=== PATIENT | male | born 1995 | race Two or more races ===

== ENCOUNTER 2021-05-27 14:00 | Inpatient (IN) | payer OTHER, SELFPAY ==
[~2021-05-27] VITALS: Ht 175.3 cm; Wt 103.9 kg
[2021-05-27 15:13] LABS: Basophils # (auto) 0 10 ^3/uL (0-0.2); Basophils % (auto) 0.1 % (0.0-2.0); Eosinophils # (auto) 0 10 ^3/uL (0-0.8); Hematocrit 46.2 % (41.0-53.0); Hemoglobin 15.7 g/dL (13.5-17.5); Lymphocytes # (auto) 0.7 10 ^3/uL (0.4-5.4); Mean Corpuscular Hemoglobin 27.2 pg (28.0-32.0); Mean Corpuscular Volume 80.2 fL (80.0-100.0); Monocytes # (auto) 0.5 10 ^3/uL (0-1.3); Monocytes % (auto) 5.4 % (0.0-12.0); Neutrophils # (auto) 8.8 10 ^3/uL (1.6-8.6); Neutrophils % (auto) 87.5 % (37.0-80.0); Nucleated Red Blood Cells % 0.1 %; Red Blood Cells 5.77 10^6/uL (4.5-5.90); Red Cell Distribution Width 13.2 % (11.8-14.3); White Blood Cell 10.1 10^3/uL (4.4-10.8)
[2021-05-27 15:30] LABS: Albumin 2.7 g/dL (3.4-5.0); Calcium 8.2 mg/dL (8.5-10.1); Potassium 3.6 mmol/L (3.5-5.1)
[2021-05-27] MEDS ORDERED: AZITHROMYCIN 500MG/ 250ML 250 ML IV ONE (15:30)
[2021-05-27] MEDS ORDERED: ZINC SULFATE 220mg CAP or TAB PO ONE (15:30)
[2021-05-27] MEDS ORDERED: ASCORBIC ACID 500 MG TAB PO ONE (15:30)
[2021-05-27] MEDS ORDERED: SODIUM CHLORIDE 0.9% 500 ML IV ONE (15:30)
[2021-05-27] MEDS ORDERED: DexAMETHasone SOD PHOS 10MG/1ML VIAL INJ IV ONE (15:30)
[2021-05-27] MEDS ORDERED: CHOLECALCIFEROL (VITD3) 2,000 UNIT CAP/TAB PO ONE (15:30)
[2021-05-27] MEDS ORDERED: cefTRIAXone 1GM/50ML D5W 50 ML IV ONE (15:30)
[2021-05-27] MEDS ORDERED: SODIUM CHLORIDE 0.9% 1,000 ML IV ONE (15:30)
[2021-05-27 15:33] LABS: BUN/Creatinine Ratio 10.6; Bilirubin, Total 0.6 mg/dL (0.2-1.0); Total Protein 7.6 g/dL (6.4-8.2)
[2021-05-27 15:54] LABS: INR 1.21 (0.9-1.15); Partial Thromboplastin Time 28.8 sec (23.6-33.0)
[2021-05-27] MEDS ORDERED: ACETAMINOPHEN 500 MG TAB PO ONE (16:15)
[2021-05-27] MEDS ORDERED: REMDESIVIR PER PHARMACY 0 ML IV SCH (18:30)
[2021-05-27] MEDS ORDERED: diphenhdrAMINE HCL 50 MG/1 ML VL IV PRN (18:30)
[2021-05-27] MEDS ORDERED: NITROGLYCERIN 0.4 MG SL TAB SL PRN (18:30)
[2021-05-27] MEDS ORDERED: MORPHINE SULFATE INJECTION 2 MG/ML SYRG IV PRN (18:30)
[2021-05-27] MEDS ORDERED: PROMETHAZINE HCL 25 MG/ML 1ML IV PRN (18:45)
[2021-05-27] MEDS ORDERED: ACETAMINOPHEN 500 MG TAB PO PRN (18:45)
[2021-05-27] MEDS ORDERED: DEXTROSE (50%) 50ML SYRG IV PRN (18:45)
[2021-05-27] MEDS ORDERED: traMADol HCL 50 MG TAB PO PRN (18:45)
[2021-05-27 19:11] VITALS: BP 116/75
[2021-05-27] MEDS ORDERED: REMDESIVIR 200 MG in NS 210ml LOADING DOSE ADULT IV ONE (20:00)
[2021-05-27] MEDS: ENOXAPARIN SOD 40 MG/0.4 ML SYRINGE SC SCH (21:31)
[2021-05-27] MEDS: ACCU-CHEK COMFORT CURVE STRIP VI SCH (21:31)
[2021-05-27] MEDS: BUDESONIDE (INHALATION) 180 MCG IH IN SCH (22:00)
[2021-05-27] MEDS ORDERED: TEMAZEPAM 15 MG CAP PO PRN (22:00)
[2021-05-27] MEDS: ALBUTEROL SULF HFA 90MCG INH 200DOSE IN PRN (22:53)
[2021-05-28 01:00] VITALS: BP 131/74
[2021-05-28 05:00] VITALS: BP 134/87
[2021-05-28] MEDS: ACCU-CHEK COMFORT CURVE STRIP VI SCH ×3 (06:28→22:22)
[2021-05-28 06:49] LABS: Basophils # (auto) 0 10 ^3/uL (0-0.2); Basophils % (auto) 0.1 % (0.0-2.0); Eosinophils # (auto) 0 10 ^3/uL (0-0.8); Hematocrit 43.6 % (41.0-53.0); Hemoglobin 14.5 g/dL (13.5-17.5); Lymphocytes # (auto) 0.4 10 ^3/uL (0.4-5.4); Lymphocytes % (auto) 5.5 % (10.0-50.0); Mean Corpuscular Hemoglobin 27.1 pg (28.0-32.0); Mean Corpuscular Hgb Conc. 33.3 g/dL (32.0-36.0); Mean Corpuscular Volume 81.6 fL (80.0-100.0); Monocytes # (auto) 0.4 10 ^3/uL (0-1.3); Monocytes % (auto) 4.9 % (0.0-12.0); Neutrophils # (auto) 6.7 10 ^3/uL (1.6-8.6); Neutrophils % (auto) 89.5 % (37.0-80.0); Nucleated Red Blood Cells % 0.1 %; Red Blood Cells 5.35 10^6/uL (4.5-5.90); Red Cell Distribution Width 13.8 % (11.8-14.3); White Blood Cell 7.5 10^3/uL (4.4-10.8)
[2021-05-28 06:59] LABS: Albumin 2.4 g/dL (3.4-5.0); BUN/Creatinine Ratio 14.9; Potassium 3.4 mmol/L (3.5-5.1)
[2021-05-28 07:02] LABS: Bilirubin, Total 0.5 mg/dL (0.2-1.0); Total Protein 6.9 g/dL (6.4-8.2)
[2021-05-28] MEDS: BUDESONIDE (INHALATION) 180 MCG IH IN SCH ×2 (07:16→21:12)
[2021-05-28] MEDS: ALBUTEROL SULF HFA 90MCG INH 200DOSE IN PRN (07:16)
[2021-05-28 07:35] LABS: Urine Bacteria NONE SEEN /hpf (None Seen); Urine Blood Negative /uL (Negative); Urine Mucus FEW (None Seen); Urine Specific Gravity 1.043 (1.001-1.035); Urine WBC 3 /hpf (0 - 3)
[2021-05-28] MEDS: cefTRIAXone 1GM/50ML D5W 50 ML IV SCH (08:53)
[2021-05-28 09:00] VITALS: BP 124/82
[2021-05-28] MEDS: ENOXAPARIN SOD 40 MG/0.4 ML SYRINGE SC SCH ×2 (09:34→22:25)
[2021-05-28] MEDS: IVERMECTIN 3 MG TAB PO SCH (09:34)
[2021-05-28] MEDS: ASCORBIC ACID 1,000 MG TAB PO SCH (09:34)
[2021-05-28] MEDS: CHOLECALCIFEROL (VITD3) 2,000 UNIT CAP/TAB PO SCH (09:35)
[2021-05-28] MEDS: ZINC SULFATE 220mg CAP or TAB PO SCH (09:35)
[2021-05-28] MEDS: DexAMETHasone SOD PHOS 10MG/1ML VIAL INJ IV SCH (09:36)
[2021-05-28] MEDS: AZITHROMYCIN 500MG/ 250ML 250 ML IV SCH (10:10)
[2021-05-28] MEDS ORDERED: DEXTROSE (50%) 50ML SYRG IV PRN (12:45)
[2021-05-28 13:00] VITALS: BP 148/89
[2021-05-28] MEDS: REMDESIVIR 100mg 100 MG in SODIUM CHL 0.9% 230 ML IV SCH (15:37)
[2021-05-28 16:58] VITALS: BP 122/73
[2021-05-28] MEDS: InsuLIN REG 1unit/0.01ml Soln (100units/ml) SC SCH ×2 (17:50→22:25)
[2021-05-28 22:00] VITALS: BP 122/83
[2021-05-29 05:15] VITALS: BP 117/75
[2021-05-29] MEDS: ALBUTEROL SULF HFA 90MCG INH 200DOSE IN PRN ×2 (06:04→20:02)
[2021-05-29] MEDS: BUDESONIDE (INHALATION) 180 MCG IH IN SCH ×2 (06:05→20:02)
[2021-05-29] MEDS: InsuLIN REG 1unit/0.01ml Soln (100units/ml) SC SCH ×4 (06:41→21:51)
[2021-05-29] MEDS: ACCU-CHEK COMFORT CURVE STRIP VI SCH ×4 (06:41→21:51)
[2021-05-29 06:52] LABS: INR 1.22 (0.9-1.15)
[2021-05-29 07:09] LABS: Albumin 2.3 g/dL (3.4-5.0); Magnesium 2.6 mg/dL (1.6-2.6); Potassium 3.4 mmol/L (3.5-5.1)
[2021-05-29 07:30] LABS: BUN/Creatinine Ratio 18.6; Bilirubin, Total 0.5 mg/dL (0.2-1.0); CRP High Sensitivity 7.28 mg/dL (< 0.3); Total Protein 6.4 g/dL (6.4-8.2)
[2021-05-29 09:00] VITALS: BP 118/63
[2021-05-29] MEDS: ZINC SULFATE 220mg CAP or TAB PO SCH (09:41)
[2021-05-29] MEDS: cefTRIAXone 1GM/50ML D5W 50 ML IV SCH (09:41)
[2021-05-29] MEDS: ASCORBIC ACID 1,000 MG TAB PO SCH (09:41)
[2021-05-29] MEDS: CHOLECALCIFEROL (VITD3) 2,000 UNIT CAP/TAB PO SCH (09:41)
[2021-05-29] MEDS: AZITHROMYCIN 500MG/ 250ML 250 ML IV SCH (09:42)
[2021-05-29] MEDS: DexAMETHasone SOD PHOS 10MG/1ML VIAL INJ IV SCH (09:42)
[2021-05-29] MEDS: ENOXAPARIN SOD 40 MG/0.4 ML SYRINGE SC SCH ×2 (09:42→21:51)
[2021-05-29] MEDS: IVERMECTIN 3 MG TAB PO SCH (09:42)
[2021-05-29 13:00] VITALS: BP 104/79
[2021-05-29] MEDS ORDERED: guaiFENesin-CODEINE Liq 5 ML UD PO PRN (14:00)
[2021-05-29] MEDS ORDERED: FUROSEMIDE 20 MG/2 ML VIAL IV ONE (16:45)
[2021-05-29] MEDS ORDERED: POTASSIUM CHL 20 Meq TABLET PO ONE (16:45)
[2021-05-29 17:00] VITALS: BP 103/53
[2021-05-29] MEDS: REMDESIVIR 100mg 100 MG in SODIUM CHL 0.9% 230 ML IV SCH (17:53)
[2021-05-29] MEDS ORDERED: IOHEXOL 350 MG/ML 100ML IJ ONE (21:02)
[2021-05-29 22:00] VITALS: BP 113/74
[2021-05-30 05:00] VITALS: BP 105/68
[2021-05-30] MEDS: ACCU-CHEK COMFORT CURVE STRIP VI SCH ×4 (06:07→21:49)
[2021-05-30 06:31] LABS: Albumin 2.3 g/dL (3.4-5.0); Calcium 8.2 mg/dL (8.5-10.1); Potassium 3.5 mmol/L (3.5-5.1)
[2021-05-30] MEDS: BUDESONIDE (INHALATION) 180 MCG IH IN SCH ×2 (06:33→21:33)
[2021-05-30] MEDS: ALBUTEROL SULF HFA 90MCG INH 200DOSE IN PRN ×2 (06:33→21:33)
[2021-05-30 06:37] LABS: Bilirubin, Total 0.5 mg/dL (0.2-1.0); Total Protein 6.4 g/dL (6.4-8.2)
[2021-05-30] MEDS: InsuLIN REG 1unit/0.01ml Soln (100units/ml) SC SCH ×4 (07:00→21:49)
[2021-05-30 09:00] VITALS: BP 123/66
[2021-05-30] MEDS: cefTRIAXone 1GM/50ML D5W 50 ML IV SCH (09:49)
[2021-05-30] MEDS: ASCORBIC ACID 1,000 MG TAB PO SCH (09:52)
[2021-05-30] MEDS: ZINC SULFATE 220mg CAP or TAB PO SCH (09:52)
[2021-05-30] MEDS: CHOLECALCIFEROL (VITD3) 2,000 UNIT CAP/TAB PO SCH (09:53)
[2021-05-30] MEDS: ENOXAPARIN SOD 40 MG/0.4 ML SYRINGE SC SCH ×2 (09:53→21:48)
[2021-05-30] MEDS: FUROSEMIDE 20 MG/2 ML VIAL IV SCH (09:53)
[2021-05-30] MEDS: DexAMETHasone SOD PHOS 10MG/1ML VIAL INJ IV SCH (09:53)
[2021-05-30] MEDS: AZITHROMYCIN 500MG/ 250ML 250 ML IV SCH (09:54)
[2021-05-30] MEDS: IVERMECTIN 3 MG TAB PO SCH (09:54)
[2021-05-30 13:00] VITALS: BP 112/55
[2021-05-30] MEDS ORDERED: POTASSIUM CHL 20 Meq TABLET PO ONE (14:00)
[2021-05-30] MEDS: REMDESIVIR 100mg 100 MG in SODIUM CHL 0.9% 230 ML IV SCH (15:28)
[2021-05-30 17:00] VITALS: BP 105/59
[2021-05-30 19:46] VITALS: BP 105/59
[2021-05-30 22:00] VITALS: BP 111/72
[2021-05-31 05:00] VITALS: BP 117/72
[2021-05-31] MEDS: ACCU-CHEK COMFORT CURVE STRIP VI SCH ×4 (06:00→21:37)
[2021-05-31] MEDS: BUDESONIDE (INHALATION) 180 MCG IH IN SCH (06:55)
[2021-05-31] MEDS: InsuLIN REG 1unit/0.01ml Soln (100units/ml) SC SCH ×4 (07:00→21:38)
[2021-05-31 07:30] LABS: Potassium 3.5 mmol/L (3.5-5.1)
[2021-05-31 07:46] LABS: Albumin 2.5 g/dL (3.4-5.0); BUN/Creatinine Ratio 23.9; Bilirubin, Direct 0.3 mg/dL (0-0.2); Bilirubin, Total 0.6 mg/dL (0.2-1.0); CRP High Sensitivity 4.34 mg/dL (< 0.3); Calcium 8.4 mg/dL (8.5-10.1); Magnesium 2.5 mg/dL (1.6-2.6)
[2021-05-31 08:55] VITALS: BP 106/75
[2021-05-31] MEDS: DexAMETHasone SOD PHOS 10MG/1ML VIAL INJ IV SCH (11:11)
[2021-05-31] MEDS: cefTRIAXone 1GM/50ML D5W 50 ML IV SCH (11:11)
[2021-05-31] MEDS: ZINC SULFATE 220mg CAP or TAB PO SCH (11:12)
[2021-05-31] MEDS: FUROSEMIDE 20 MG/2 ML VIAL IV SCH (11:12)
[2021-05-31] MEDS: POTASSIUM CHL 10 Meq TABLET PO SCH (11:12)
[2021-05-31] MEDS: IVERMECTIN 3 MG TAB PO SCH (11:13)
[2021-05-31] MEDS: CHOLECALCIFEROL (VITD3) 2,000 UNIT CAP/TAB PO SCH (11:13)
[2021-05-31] MEDS: ENOXAPARIN SOD 40 MG/0.4 ML SYRINGE SC SCH ×2 (11:13→21:37)
[2021-05-31] MEDS: ASCORBIC ACID 1,000 MG TAB PO SCH (11:13)
[2021-05-31 13:00] VITALS: BP 119/72
[2021-05-31] MEDS: AZITHROMYCIN 500MG/ 250ML 250 ML IV SCH (13:16)
[2021-05-31] MEDS: REMDESIVIR 100mg 100 MG in SODIUM CHL 0.9% 230 ML IV SCH (16:36)
[2021-05-31 17:00] VITALS: BP 98/72
[2021-05-31] MEDS: ALBUTEROL SULF HFA 90MCG INH 200DOSE IN PRN (19:31)
[2021-05-31 22:00] VITALS: BP 111/72
[2021-06-01 05:00] VITALS: BP 111/59
[2021-06-01] MEDS: InsuLIN REG 1unit/0.01ml Soln (100units/ml) SC SCH ×2 (06:33→11:30)
[2021-06-01] MEDS: ACCU-CHEK COMFORT CURVE STRIP VI SCH ×2 (06:33→11:30)
[2021-06-01] MEDS: ALBUTEROL SULF HFA 90MCG INH 200DOSE IN PRN (06:56)
[2021-06-01] MEDS: BUDESONIDE (INHALATION) 180 MCG IH IN SCH (06:57)
[2021-06-01 07:05] LABS: Albumin 2.7 g/dL (3.4-5.0); Potassium 3.9 mmol/L (3.5-5.1)
[2021-06-01 07:15] LABS: Bilirubin, Direct 0.3 mg/dL (0-0.2); Bilirubin, Total 0.5 mg/dL (0.2-1.0); CRP High Sensitivity 2.14 mg/dL (< 0.3); Total Protein 7.3 g/dL (6.4-8.2)
[2021-06-01 09:00] VITALS: BP 108/65
[2021-06-01] MEDS: cefTRIAXone 1GM/50ML D5W 50 ML IV SCH (09:00)
[2021-06-01] MEDS: DexAMETHasone SOD PHOS 10MG/1ML VIAL INJ IV SCH (10:00)
[2021-06-01] MEDS: AZITHROMYCIN 500MG/ 250ML 250 ML IV SCH (10:00)
[2021-06-01] MEDS: IVERMECTIN 3 MG TAB PO SCH (10:00)
[2021-06-01] MEDS: FUROSEMIDE 20 MG/2 ML VIAL IV SCH (10:00)
[2021-06-01] MEDS: ZINC SULFATE 220mg CAP or TAB PO SCH (10:00)
[2021-06-01] MEDS: POTASSIUM CHL 10 Meq TABLET PO SCH (10:00)
[2021-06-01] MEDS: ENOXAPARIN SOD 40 MG/0.4 ML SYRINGE SC SCH (10:00)
[2021-06-01] MEDS: ASCORBIC ACID 1,000 MG TAB PO SCH (10:00)
[2021-06-01] MEDS: CHOLECALCIFEROL (VITD3) 2,000 UNIT CAP/TAB PO SCH (10:00)
[2021-06-01] MEDS ORDERED: ASCO10003 PO (10:41)
[2021-06-01] MEDS ORDERED: CHOL1CAP47 PO (10:41)
[2021-06-01] MEDS ORDERED: ALBUAER3 IN (10:41)
[2021-06-01] MEDS ORDERED: AMOX500T86 PO (10:41)
[2021-06-01 11:24] VITALS: BP 106/75
== END 2021-06-01 13:15 | disposition home or self-care (01) | DRG 177 ==
LOC: ER 14:00 → TELE 18:27 → TELE-EAST 23:18
PROVIDERS: ADMIT Internal Medicine; ATTEND Internal Medicine Pulmonary Disease
PROC: XW033E5 Introduction of Remdesivir Anti-infective into Peripheral Vein, Percutaneous Approach, New Technology Group 5 (ICD-10-PCS; principal; 2021-05-27)
DX: U07.1 COVID-19 (principal); J12.82 Pneumonia due to coronavirus disease 2019; J96.00 Acute respiratory failure, unspecified whether with hypoxia or hypercapnia; R73.9 Hyperglycemia, unspecified; E66.9 Obesity, unspecified; D89.839 Cytokine release syndrome, grade unspecified; K76.0 Fatty (change of) liver, not elsewhere classified; Z83.3 Family history of diabetes mellitus; Z68.34 Body mass index [BMI] 34.0-34.9, adult
CPT/HCPCS: 36415; 36600; 71045; 71275; 80053; 80061; 80076; 81001; 82306; 82728; 82805; 82962; 83036; 83605; 83615; 83735; 84132; 84484; 85025; 85379; 85610; 85730; 86141; 86850; 86900; 86901; 87040; 87426; 93005; 94640; 96361; 96365; 96367; 96368; 96375; G0378; J0696; J1100; J1815

== ENCOUNTER 2024-06-30 09:25 | Emergency (ER) | payer MEDICAID ==
[~2024-06-30] VITALS: Ht 172.7 cm; Wt 106.9 kg
[~2024-06-30 09:25] MED LIST: ALBUAER3 IN; AMOX500T86 PO; ASCO10003 PO; CHOL1CAP47 PO
[2024-06-30 10:00] VITALS: PULSE 80; RESP 17; O2SAT 96
[2024-06-30] MEDS: PROCHLORPERAZINE EDISYLATE 5 MG/ML 2ML VIAL IV ONE (10:57)
[2024-06-30] MEDS: ACETAMINOPHEN 500 MG TAB or CAP PO ONE (10:57)
[2024-06-30] MEDS: SODIUM CHLORIDE 0.9% 1,000 ML IVB ONE (10:57)
--- NOTE | 2024-06-30 11:04 | ED.PDOC ---
History of Present Illness HPI Comments This is a 29-year-old male who comes in with chief complaint of vomiting, fever, chills and body aches. The patient was also complaining of a headache. The patient states that all symptoms started on Saturday. Upon arrival, the patient was actively vomiting. Chief Complaint: Shortness of Breath Time Seen by MD: 09:37 Primary Care Provider: none Reviewed Notes: Nurses Notes, Medications, Allergies (No allergies to medications) Allergies: Coded Allergies: No Known Drug Allergy (Verified Allergy, Unknown, 05/27/21) Home Meds Active Scripts Ondansetron Odt 4MG Tab (ZOFRAN PO) 4 Mg Tb, 4 MG PO Q8HP PRN for 7 Days, #21 TAB ODT TAB-DISSOLVE IN MOUTH, THEN SWALLOW Prov:SNOW SANCHEZ MD 06/30/24 Levofloxacin Hemihydrate (LEVAQUIN 500 MG) 500 Mg Tab, 1 TAB PO DAILY, #10 TAB Prov:SNOW SANCHEZ MD 06/30/24 Pantoprazole Sodium Sesquihydr (Protonix) 40 Mg Tab, 40 MG PO DAILY, #30 TAB Prov:SNOW SANCHEZ MD 06/30/24 Ondansetron Odt 4MG Tab (ZOFRAN PO) 4 Mg Tb, 4 MG PO Q8HP PRN for 5 Days, #15 TAB ODT TAB-DISSOLVE IN MOUTH, THEN SWALLOW Prov:SNOW SANCHEZ MD 06/30/24 Cholecalciferol (Vitamin D3 Super Strength) 2,000 Unit Cap, 4000 UNIT PO DAILY for 30 Days, #30 CAP Prov:NIHDI CHANDLER MD 06/01/21 Ascorbic Acid (Gnp Vitamin C W/Bharati Hips) 1,000 Mg Tab, 1000 MG PO DAILY for 30 Days, #30 TAB Prov:NIDHI CHANDLER MD 06/01/21 Albuterol Sulfate (VENTOLIN MDI) 90 Mcg Ih, 180 MCG IN TIDPRN PRN for 90 Days, #90 INH Prov:NIDHI CHANDLER MD 06/01/21 Amoxicillin & Pot Clavulanate (Augmentin) 500 Mg Tab, 1 TAB PO BID, #6 TAB Prov:NIDHI CHANDLER MD 06/01/21 Information Source: Patient Mode of Arrival: Ambulatory Severity: Moderate Timing: Days Duration: Since onset Prehospital treatment: None Location: Generalized body aches with fever and chills Past Medical History PAST MEDICAL HISTORY: Denies Surgical History: Denies all surgeries Family History Family History: Family hx of DM, Family hx of heart viviana Social History Smoker: Non-Smoker Alcohol: Denies ETOH Use Drugs: Denies Drug Use Lives In: Home Constitutional: reports: chills, fever, others (This is); denies: diaphoresis, fatigue, malaise, sweats, weakness EENTM: denies: blurred vision, double vision, ear bleeding, ear discharge, ear drainage, ear pain, ear ringing, eye pain, eye redness, hearing loss, mouth pain, mouth swelling, nasal discharge, nose bleeding, nose congestion, nose pain, photophobia, tearing, throat pain, throat swelling, voice changes, others Respiratory: denies: cough, hemoptysis, orthopnea, SOB at rest, shortness of breath, SOB with excertion, stridor, wheezing, others Cardiovascular: denies: chest pain, dizzy spells, diaphoresis, Dyspnea on exertion, edema, irregular heart beat, left arm pain, lightheadedness, palpitations, PND, syncope, others Gastrointestinal: denies: abdomen distended, abdominal pain, blood streaked bowels, constipated, diarrhea, dysphagia, difficulty swallowing, hematemesis, melena, nausea, poor appetite, poor fluid intake, rectal bleeding, rectal pain, vomiting, others Genitourinary: denies: burning, dysuria, flank pain, frequency, hematuria, incontinence, penile discharge, penile sore, pain, testicle pain, testicle swelling, urgency, others Neurological: reports: headache; denies: dizziness, fainting, left sided numbness, left sided weakness, numbness, paresthesia, pre-existing deficit, right sided numbness, right sided weakness, seizure, speech problems, tingling, tremors, weakness, others Musculoskeletal: denies: back pain, gout, joint pain, joint swelling, muscle pain, muscle stiffness, neck pain, others Integumetry: denies: bruises, change in color, change in hair/nails, dryness, laceration, lesions, lumps, rash, wounds, others Allergic/Immunocompromised: denies: Difficulty Healing, Frequent Infections, Hives, Itching, others Hematologic/Lymphatic: denies: anemia, blood clots, easy bleeding, easy bruising, swollen glands, others Endocrine: denies: excessive hunger, excessive sweating, excessive thirst, excessive urination, flushing, intolerance to cold, intolerance to heat, unexplained weight gain, unexplained weight loss, others Psychiatric: denies: anxiety, bipolar disorder, depression, hopeless, panic disorder, schizophrenia, sleepless, suicidal, others Physical Exam General Appearance: Moderate Distress HEENT: Normal ENT Inspection, Pharynx Normal, TMs Normal Neck: Full Range of Motion, Non-Tender, Normal, Normal Inspection Respiratory: Chest Non-Tender, Lungs Clear, No Accessory Muscle Use, No Respiratory Distress, Normal Breath Sounds Cardiovascular: No Edema, No JVD, No Murmur, No Gallop, Normal Peripheral Pulses, Regular Rate/Rhythm Breast Exam: Deferred Gastrointestinal: No Organomegaly, Non Tender, No Pulsatile Mass, Normal Bowel Sounds, Soft Genitalia: Deferred Pelvic: Deferred Rectal: Deferred Extremities: No calf tenderness, Normal capillary refill, Normal inspection, Normal range of motion, Non-tender, No pedal edema Musculoskeletal : Apperance: Normal Neurologic: Alert, business development agent II-XII nml as Tested, Motor Weakness, Normal Affect, No rmal Mood, No Sensory Deficits Cerebellar Function: Normal Reflexes: Normal Skin: Dry, Normal Color, Warm Lymphatic: No Adenopathy Was a procedure done? Was a procedure done?: No Differential Dx Considerations may include: COVID-19, influenza, viral syndrome, generalized weakness X-Ray, Labs, Meds, VS Vital Signs Date Time Temp Pulse Resp B/P (MAP) Pulse Ox O2 Delivery O2 Flow Rate FiO2 06/30/24 11:54 100.0 112 18 152/66 (94) 96 100.0 06/30/24 10:57 100.1 06/30/24 10:00 80 17 96 Room Air* 0 21 06/30/24 10:00 100.1 80 17 116/89 (98) 96 100.1 06/30/24 09:46 103.1 108 17 104/66 (79) 98 Lab Test 06/30/24 14:22 06/30/24 10:50 06/30/24 10:24 Range/Units Sodium Level 138 136-145 mmol/L Potassium Level 3.3 L 3.5-5.1 mmol/L Chloride Level 104 98-107 mmol/L Carbon Dioxide Level 23 20-31 mmol/L Anion Gap 11 5-15 Blood Urea Nitrogen 8 L 9-23 mg/dL Creatinine 1.07 0.700-1.30 mg/dL Glomerular Filtration Rate Calc 95 >90 mL/min BUN/Creatinine Ratio 7.5 L 10.0-20.0 Serum Glucose 133 H 74-106 mg/dL Lactic Acid Level 1.2 2.0 0.4-2.0 mmol/L Calcium Level 9.1 8.7-10.4 mg/dL White Blood Count 9.2 4.4-10.8 10^3/uL Red Blood Count 5.38 4.5-5.90 10^6/uL Hemoglobin 15.1 13.5-17.5 g/dL Hematocrit 45.3 41.0-53.0 % Mean Corpuscular Volume 84.2 80.0-100.0 fL Mean Corpuscular Hemoglobin 28.0 28.0-32.0 pg Mean Corpuscular Hemoglobin Concent 33.3 32.0-36.0 g/dL Red Cell Distribution Width 13.4 11.8-14.3 % Platelet Count 138 L 140-450 10^3/uL Mean Platelet Volume 10.0 6.9-10.8 fL Neutrophils (%) (Auto) 82.9 H 37.0-80.0 % Lymphocytes (%) (Auto) 8.3 L 10.0-50.0 % Monocytes (%) (Auto) 8.6 0.0-12.0 % Eosinophils (%) (Auto) 0.0 0.0-7.0 % Basophils (%) (Auto) 0.2 0.0-2.0 % Neutrophils # (Auto) 7.6 1.6-8.6 10 ^3/uL Lymphocytes # (Auto) 0.8 0.4-5.4 10 ^3/uL Monocytes # (Auto) 0.8 0-1.3 10 ^3/uL Eosinophils # (Auto) 0 0-0.8 10 ^3/uL Basophils # (Auto) 0 0-0.2 10 ^3/uL Nucleated Red Blood Cells 0.1 % POC Glucose 135 H 70-106 mg/dl Current Medications Medications (Trade) Dose Ordered Sig/Jared Route Start Time Stop Time Status Last Admin Acetaminophen (Tylenol Tablet) 1,000 mg ONCE ONCE PO 06/30/24 10:00 06/30/24 10:01 DC 06/30/24 10:57 Sodium Chloride 1,000 ml @ 1,000 mls/hr Q1H ONCE IVB 06/30/24 10:15 06/30/24 11:14 DC 06/30/24 10:57 Prochlorperazine Edisylate (Compazine Inj) 10 mg ONCE ONCE IV 06/30/24 10:15 06/30/24 10:16 DC 06/30/24 10:57 The CBC is within normal limits The patient was given acetaminophen 1000 mg p.o. The patient was given a 1 L bolus of normal saline The patient was given Compazine 10 mg IV push The patient was being discharged on Protonix and Zofran The patient given a prescription of Levaquin for the pneumonia The patient was given Rocephin 1 g IV piggyback here in the emergency department The patient will follow up with the primary care doctor The patient will return to the emergency department's condition worsens. Images Reviewed?: Images reviewed and evaluated by me Time of 1ST Reevaluation: 11:48 Reevaluation 1ST: Unchanged Patient Education/Counseling: Diagnosis, Treatment, Prognosis Family Education/Counseling: No Family Present Departure 1 Departure Time of Disposition: 14:40 Impression: Primary Impression: Fever Qualified Codes: R50.9 - Fever, unspecified Additional Impression: Right lower lobe pneumonia Qualified Codes: J18.9 - Pneumonia, unspecified organism Disposition: HOME / SELF CARE / HOMELESS Condition: Fair e-Prescriptions Ondansetron Odt 4MG Tab (ZOFRAN PO) 4 Mg Tb 4 MG PO Q8HP PRN for 7 Days, #21 TAB ODT TAB-DISSOLVE IN MOUTH, THEN SWALLOW Prov: SNOW SANCHEZ MD 06/30/24 Levofloxacin Hemihydrate (LEVAQUIN 500 MG) 500 Mg Tab 1 TAB PO DAILY, #10 TAB Prov: SNOW SANCHEZ MD 06/30/24 Pantoprazole Sodium Sesquihydr (Protonix) 40 Mg Tab 40 MG PO DAILY, #30 TAB Prov: SNOW SANCHEZ MD 06/30/24 Ondansetron Odt 4MG Tab (ZOFRAN PO) 4 Mg Tb 4 MG PO Q8HP PRN for 5 Days, #15 TAB ODT TAB-DISSOLVE IN MOUTH, THEN SWALLOW Prov: SNOW SANCHEZ MD 06/30/24 Discharged With: Self Critical Care Note Critical Care Time?: No Stability Stability form required: Yes Unstable for transfer: ED Physician Assesment (Clinical assesment) Heart Score Heart Score: Heart Score Response (Comments) Value History N/A 0 EKG N/A 0 Age N/A 0 Risk Factors N/A 0 Troponin N/A 0 Total 0 SNOW SANCHEZ MD Jun 30, 2024 11:04
[2024-06-30 11:24] LABS: Basophils # (auto) 0 10 ^3/uL (0-0.2); Basophils % (auto) 0.2 % (0.0-2.0); Eosinophils # (auto) 0 10 ^3/uL (0-0.8); Hematocrit 45.3 % (41.0-53.0); Hemoglobin 15.1 g/dL (13.5-17.5); Lymphocytes # (auto) 0.8 10 ^3/uL (0.4-5.4); Lymphocytes % (auto) 8.3 % (10.0-50.0); Mean Corpuscular Hgb Conc. 33.3 g/dL (32.0-36.0); Mean Corpuscular Volume 84.2 fL (80.0-100.0); Monocytes # (auto) 0.8 10 ^3/uL (0-1.3); Monocytes % (auto) 8.6 % (0.0-12.0); Neutrophils # (auto) 7.6 10 ^3/uL (1.6-8.6); Neutrophils % (auto) 82.9 % (37.0-80.0); Nucleated Red Blood Cells % 0.1 %; Platelet Count (auto) 138 10^3/uL (140-450); Red Blood Cells 5.38 10^6/uL (4.5-5.90); Red Cell Distribution Width 13.4 % (11.8-14.3); White Blood Cell 9.2 10^3/uL (4.4-10.8)
[2024-06-30] MEDS ORDERED: PANT40TA2 PO (14:38)
[2024-06-30] MEDS ORDERED: ZOFR4T PO (14:38)
[2024-06-30 15:02] LABS: Chloride 104 mmol/L (98-107); Sodium 138 mmol/L (136-145)
[2024-06-30 15:03] LABS: Anion Gap 11 (5-15); Carbon Dioxide 23 mmol/L (20-31)
[2024-06-30 15:04] LABS: Calcium 9.1 mg/dL (8.7-10.4)
--- NOTE | 2024-06-30 15:07 | DVH ---
XY CHEST TWO VIEWS ROUTINE CLINICAL HISTORY: sob and fever COMPARISON: None TECHNIQUE: Frontal and lateral view of the chest was obtained FINDINGS: Lines and Tubes: None Lungs: Patchy opacification of the right mid lung zone. Pleura: No effusion. No pneumothorax. Cardiomediastinal contours: Unremarkable Bones: No acute osseous abnormality. IMPRESSION: Right mid lung zone opacification which may represent pneumonia.
[2024-06-30 15:08] LABS: BUN/Creatinine Ratio 7.5 (10.0-20.0)
[2024-06-30 15:09] LABS: Blood Urea Nitrogen 8 mg/dL (9-23); Glucose 133 mg/dL (74-106); Potassium 3.3 mmol/L (3.5-5.1)
[2024-06-30] MEDS ORDERED: LEVO500T91 PO (15:35)
[2024-06-30] MEDS: cefTRIAXone 1GM/50ML D5W 50 ML IV ONE (15:55)
[2024-06-30 15:57] VITALS: BP 128/77; PULSE 104; RESP 18; TEMP 98.7; O2SAT 95
== END 2024-06-30 16:29 | disposition home or self-care (01) ==
LOC: ER 09:25
DX: J18.9 Pneumonia, unspecified organism (principal); Z79.899 Other long term (current) drug therapy
CPT/HCPCS: 36415; 71046; 80048; 82962; 83605; 85025; 87040; 96361; 96365; 96375; 99285; J0696; J0780; J7030